=== PATIENT | female | born 1955 | race Caucasian/White ===

== ENCOUNTER 2024-02-09 14:52 | Emergency (ER) | payer MEDICARE, SELFPAY ==
[2024-02-09 14:59] VITALS: BP 149/72; PULSE 74; RESP 20; TEMP 36.2; O2SAT 100
--- NOTE | 2024-02-09 15:25 | ED.GENADULT ---
HPI - General Adult General Chief complaint: Skin/Abscess/Foreign Body Stated complaint: insect bite Time Seen by Provider: 02/09/24 15:24 Source: patient Mode of arrival: ambulatory Limitations: no limitations History of Present Illness HPI narrative: This is a 68-year-old female who presents to the ED for chief complaint of skin rash to the left lower blevins X9 days. Patient reports that she feels she may have been bitten by spider initially but is unsure. She did not visualize any insect or spider. Denies tick bite. She does state that it 1st occurred after working out in the yd. She has some suspected poison marlee and other locations. States that the area on the leg has spread and redness which was concerning. She states that it is itchy but not tender. denies warmth to the area. Denies fevers, chills, nausea, vomiting. Related Data Allergies Allergy/AdvReac Type Severity Reaction Status Date / Time No Known Allergies Allergy Verified 02/09/24 14:54 Review of Systems Review of Systems: All systems as dictated in HPI Exam Narrative: GENERAL: Well-appearing, well-nourished, and in no acute distress. HEAD: Normocephalic, atraumatic. EYES: PERRLA and EOMI. ENT: Nares clear, no rhinorrhea or epistaxis. Mucous membranes moist. Oropharynx without tonsillar hypertrophy exudate or other lesions. NECK: Supple. No adenopathy or masses. CHEST: No respiratory distress. Clear to auscultation. No wheezes rales or rhonchi HEART: Regular rate and rhythm. No murmur heard. Normal peripheral pulses. ABDOMEN: Soft, nontender, nondistended, normal active bowel sounds. MSK: Normal range of motion. No edema. SKIN: 3 x 7 cm area of maculopapular erythema to the left anterior blevins. No warmth. No tenderness. No purulent drainage. Scattered areas of similar rash to the upper extremities. NEURO: Alert and oriented x4. No focal deficits. PSYCH: Normal mood and affect. Course Vital Signs Vital signs: Vital Signs Temperature 97.1 F L 02/09/24 14:59 Pulse Rate 74 02/09/24 14:59 Respiratory Rate 20 02/09/24 14:59 Blood Pressure 149/72 H 02/09/24 14:59 Pulse Oximetry 100 02/09/24 14:59 Temperature 97.1 F L 02/09/24 14:59 Pulse Rate 74 02/09/24 14:59 Respiratory Rate 20 02/09/24 14:59 Blood Pressure 149/72 H 02/09/24 14:59 Pulse Oximetry 100 02/09/24 14:59 Medical Decision Making MDM Narrative Medical decision making narrative: This is a 68-year-old female who presents to the ED with chief complaint of possible spider bite to the leg. She has an itchy rash in this area. Vitals are normal. Exam does show likely hypersensitivity reaction to the left blevins. there is minimal warmth. No purulence or tenderness. Still may have an element of superimposed bacterial infection. No systemic signs. She is well-appearing. The bite jr wound does not show any signs of necrotic skin. patient was given Rx for cephalexin to cover for possible infection. encourage to start taking Benadryl as well. Pt will be discharged in stable condition. Return precautions given and supportive measures discussed. Pt is understanding and agreeable with plan for discharge and follow-up with PCP. Vital Signs Vital Signs: Vital Signs Temperature 97.1 F L 02/09/24 14:59 Pulse Rate 74 02/09/24 14:59 Respiratory Rate 20 02/09/24 14:59 Blood Pressure 149/72 H 02/09/24 14:59 Pulse Oximetry 100 02/09/24 14:59 Temperature 97.1 F L 02/09/24 14:59 Pulse Rate 74 02/09/24 14:59 Respiratory Rate 20 02/09/24 14:59 Blood Pressure 149/72 H 02/09/24 14:59 Pulse Oximetry 100 02/09/24 14:59 Discharge Plan Discharge Clinical Impression: Dermal hypersensitivity reaction Patient Disposition: Home, Self-Care Condition: Stable Instructions: Antibiotic Form Additional Instructions: your exam today is reassuring overall. Please continue with topical treatment
== END 2024-02-09 15:34 | disposition home or self-care (01) ==
LOC: ANHED 15:34
PROVIDERS: Emergency Provider Physician Assistant
DX: T78.40XA Allergy, unspecified, initial encounter (principal); X58.XXXA Exposure to other specified factors, initial encounter
CPT/HCPCS: 99283